=== PATIENT | male | born 1970 | race Caucasian/White ===

== ENCOUNTER 2020-05-28 07:13 | Outpatient (CLI) | payer OTHER, SELFPAY ==
--- NOTE | ~2020-05-28 | XR_ITS ---
EXAMINATION: XR shoulder LT min 2V DATE: 05/28/2020 08:12 INDICATION: Left shoulder pain. TECHNIQUE: 5 views of left shoulder were obtained. COMPARISON: Left shoulder radiographs 07/27/2017 FINDINGS: Bone alignment is normal. No fracture. Glenohumeral joint is normal. There is mild osteoart hritis of acromioclavicular joint. IMPRESSION: 1. Mild osteoarthritis of left acromioclavicular joint. Reviewed, dictated and finalized at location B.
--- NOTE | ~2020-05-28 | XR_ITS ---
EXAMINATION: XR cervical spine 4-5V EXAM DATE: 05/28/2020 08:09 INDICATION: Left shoulder pain, left arm tingling. Neck pain. TECHNIQUE: Cervical spine frontal, lateral, lateral swimmers, and open-mouth odontoid projections. There is no prior study for comparison. FINDINGS: There is no evidence of acute cervical fracture. The odontoid process is intact. Pre-dens space is normal. Prevertebral soft tissue is normal. There are no soft tissue abnormalities identi fied. There is 2 mm retrolisthesis C5 on 6 with mild to moderate disc disease at this level. The ve rtebral bodies are otherwise aligned. The vertebral body and disc heights are otherwise well maintain ed. Mild to moderate uncovertebral joint arthropathy at C5-6. Otherwise mild cervical arthropathy. Sm all amount of bilateral carotid bulb calcification. Lung apices unremarkable.. IMPRESSION: 1. Mild to moderate C5-6 spondylosis. 2. Mild bilateral carotid bulb arterial sclerosis. Reviewed, dictated and finalized at location A.
== END 2020-05-28 07:14 | disposition home or self-care (01) ==
DX: M79.645 Pain in left finger(s) (principal); M25.512 Pain in left shoulder; M54.2 Cervicalgia
CPT/HCPCS: 72050; 73030

== ENCOUNTER 2020-05-28 08:23 | Emergency (ER) | payer OTHER, SELFPAY ==
--- NOTE | ~2020-05-28 | CT_ITS ---
EXAMINATION: CT brain wo con EXAM DATE: 05/28/2020 09:24 INDICATION: Hypertension, headache and head pressure. TECHNIQUE: Spiral CT of the head was performed without contrast. Axial, coronal and sagittal images were reviewed. The dose-length product (DLP) for this examination was 605.33 mGy-cm. The exposure w as tailored according to patient size, and iterative reconstruction (ASIR) was used as additional dos e reduction technique. There is no prior study for comparison. FINDINGS: There is no acute intraparenchymal hemorrhage. No evidence of intraparenchymal brain mass lesion. No evidence of acute infarction. There is no mass effect or midline shift. The ventricles are normal in size. There are no extra-axial collections. There are no acute calvarial fractures. T he orbits are unremarkable. Soft tissue is unremarkable. The visualized sinuses and mastoid air lucian ls are well aerated. IMPRESSION: 1. No acute intracranial findings. Reviewed, dictated and finalized at location A.
--- NOTE | ~2020-05-28 | XR_ITS ---
EXAMINATION: XR chest 2V DATE: 05/28/2020 09:24 INDICATION: Hypertension. Chest pain. TECHNIQUE: PA and lateral views of the chest were obtained. COMPARISON: None FINDINGS: The lungs are clear with no focal airspace opacities, pulmonary edema, pleural effusion or pneumothor ax. The cardiomediastinal silhouette is normal. Mild to moderate thoracic spondylosis with minimal li [place]land physiologic anterior wedging at T11 and T12. IMPRESSION: 1. No acute cardiopulmonary disease. Reviewed, dictated and finalized at location A.
[2020-05-28 08:35] VITALS: BP 177/110; PULSE 48; RESP 18; TEMP 36.8; O2SAT 98
--- NOTE | 2020-05-28 08:44 | ECG_ITS ---
Measurements Intervals [place] Rate: 56 P: 51 [place]: 169 QRS: -11 QRSD: 112 T: 36 QT: 399 QTc: 385 Interpretive Statements SINUS BRADYCARDIA INTRAVENTRICULAR CONDUCTION DELAY VOLTAGE CRITERIA FOR LVH BORDERLINE ECG Electronically Signed On 05-28-2020 10:32:03 CDT by Jun Cartagena D.O.
[2020-05-28 08:48] VITALS: PULSE 48
--- NOTE | 2020-05-28 08:56 | ED.ARRPALP ---
HPI - Arrhythmia/Palpitations General Chief Complaint: Arrhythmia/Palpitations Stated Complaint: BLOOD PRESSURE HIGH Time Seen by Provider: 05/28/20 08:23 Source: patient Mode of arrival: ambulatory Limitations: no limitations History of Present Illness HPI narrative: 49-year-old man with a history of hypertension came to the hospital for outpatient x-rays today and was complaining of a headache so his primary care doctor asked staff to do in blood pressure. 185/120 and the x-ray department. He has been having dull head pressure for a month or 2 as well as intermittent sharp chest pain and palpitations more recently. He denies shortness of breath, cough, cold symptoms, sore throat, fever, sweats, syncope, nausea, vomiting or diarrhea, and limb swelling. He has had a catheterization in the past and has an extensive family history of coronary artery disease. He has no history of diabetes. MD complaint: palpitations Onset (ago): week(s) Duration: intermittent Severity: moderate Context: occurred during rest Associated symptoms: chest pain Treatments prior to arrival: beta-veronica Related Data Home Medications Medication Instructions Recorded Confirmed albuterol sulfate 1 puff INHALATION PRN PRN 05/28/20 05/28/20 amlodipine 10 mg PO DAILY 05/28/20 05/28/20 clonazepam 1 mg PO PRN PRN 05/28/20 05/28/20 ibuprofen 800 mg PO DAILY 05/28/20 05/28/20 metoprolol succinate 25 mg PO DAILY 05/28/20 05/28/20 Allergies Allergy/AdvReac Type Severity Reaction Status Date / Time calamine Allergy Unknown Verified 05/28/20 08:57 [From Calamine Plus (pramox-calamin)] Iodine and Iodide Containing Allergy Unknown Verified 05/28/20 08:56 Produc pramoxine Allergy Unknown Verified 05/28/20 08:57 [From Calamine Plus (pramox-calamin)] Review of Systems Constitutional: Constitutional: Denies chills and Denies fever(s) Eyes: Eyes: Denies change in vision and Denies photophobia ENT: Denies dysphagia, Reports nasal congestion ( seasonal allergies) and Denies sore throat Cardiovascular: Cardiovascular: Reports as per HPI, Reports chest pain and Denies radiating jaw, neck or arm pain Respiratory: Respiratory: Reports cough ( chronic as he is a smoker), Denies dyspnea and Denies wheezing Gastrointestinal: Gastrointestinal: Denies abdominal pain, Denies nausea and Denies vomiting Neurologic: Denies vertigo, Denies syncope, Reports headache(s), Denies focal weakness, Denies numbness and Denies weakness Endocrine: Endocrine: Denies excessive sweating Hematologic/Lymphatic: Hematologic/Lymphatic: Denies easy bleeding and Denies easy bruising Allergic/Immunologic: Allergic/Immunologic: Denies lip swelling and Denies throat swelling [facility] Surgical History Surgical History (Updated 05/28/20 @ 09:33 by Anibal Radford MD) H/O hernia repair Social History Social History (Updated 05/28/20 @ 09:33 by Anibal Radford MD) Smoking status: Current every day smoker Substance use type: does not use Living arrangements: with family Exam Const: General: healthy appearing, no acute distress and alert Orientation/consciousness: patient oriented x3 Limitations: no limitations Eyes: Conjunctivae: conjunctivae normal Pupils: Equal, round and reactive pupils present EOM: EOMs intact bilaterally Resp: Effort & Inspection: normal respiratory effort and not labored Auscultation: clear to auscultation bilaterally, no rales, no rhonchi and no wheezes Cardio: Rate: bradycardic Rhythm: regular rhythm Heart sounds: no murmurs GI: Auscultation: normal bowel sounds Other: Skin: General skin exam: normal color, no jaundice and no pallor Rashes: no rashes Neuro: General: patient oriented x3, moves all extremities, no focal motor deficits and CN's II-XI intact bilaterally Speech: normal speech Gait exam (Neuro): Normal gait present Extrem: General: normal to inspection and no clubbing, cyanosis or edema Psy
[2020-05-28 09:06] LABS: Basophils Absolute Auto 0.04 K/mm3 (0.00-0.10); Basophils Percent Auto 0.4 % (0.0-1.0); Eosinophils Absolute Auto 0.36 K/mm3 (0.02-0.50); Eosinophils Percent Auto 3.6 % (1.0-6.0); Hematocrit 47.5 % (40.0-54.0); Hemoglobin 15.9 g/dL (14.0-18.0); Immature Granulocyte Absolute 0.02 K/mm3 (0.00-0.00); Immature Granulocyte Percent A 0.2 % (0.0-0.0); Lymphocytes Percent Auto 24.7 % (18.0-42.0); Mean Corpuscular HGB Conc 33.5 g/dL (32.0-36.0); Mean Corpuscular Hemoglobin 31.5 pg (27.0-31.0); Mean Corpuscular Volume 94.1 fL (78.0-102.0); Mean Platelet Volume 9.9 fl (8.7-11.0); Monocytes Absolute Auto 0.65 K/mm3 (0.10-0.90); Monocytes Percent Auto 6.4 % (2.0-11.0); Neutrophils Absolute Auto 6.6 K/mm3 (1.7-7.2); Neutrophils Percent Auto 64.7 % (50.0-70.0); Platelet Count Result 243 K/mm3 (150-420); Red Blood Count 5.05 M/mm3 (4.70-6.10); Red Cell Distribution Width 12.8 % (11.6-14.4); White Blood Count 10.1 K/mm3 (4.8-10.8)
[2020-05-28 09:21] LABS: BNP 15.2 pg/mL (0-100)
[2020-05-28 09:23] LABS: Alanine Aminotransferase 28 U/L (16-63); Albumin Level 3.6 g/dL (3.4-5.0); Alkaline Phosphatase 60 U/L (46-116); Anion Gap 10 mmol/L (8-16); Aspartate Amino Transferase 15 U/L (15-37); Bilirubin,Total 0.7 mg/dL (0.00-1.00); Blood Urea Nitrogen 10 mg/dL (7-18); Calcium 8.5 mg/dL (8.5-10.1); Carbon Dioxide 26 mmol/L (21-32); Chloride 105 mmol/L (98-108); Estimated CRCL calculation 82 ml/min; Estimated Glomerular Filt Rate > 60; Glucose 91 mg/dL (70-99); Osmolality Calculated 291 mOsm/kg (285-295); Sodium 141 mmol/L (136-145); Total Protein 7.1 g/dL (6.4-8.2)
[2020-05-28 09:24] VITALS: BP 150/88; PULSE 47; RESP 18; O2SAT 97
[2020-05-28 09:24] LABS: Partial Thromboplastin Time 28.5 SEC (22.3-31.6); Prothrombin Time 10.8 Seconds (9.64-11.0)
[2020-05-28 09:25] LABS: D Dimer 0.56 mg/L (0.19-0.50); Digoxin < 0.2 ng/mL (0.9-2.0); Troponin I < 0.02 ng/mL (0.00-0.056)
[2020-05-28 09:33] VITALS: BP 140/74; PULSE 47; RESP 20; O2SAT 98
[2020-05-28 09:38] VITALS: BP 139/82; PULSE 48; RESP 18; TEMP 36.6; O2SAT 98
== END 2020-05-28 09:45 | disposition home or self-care (01) ==
PROVIDERS: Emergency Provider Emergency Medicine; PCP Family Medicine
DX: I16.0 Hypertensive urgency (principal)
CPT/HCPCS: 36415; 70450; 71046; 80053; 80162; 83880; 84484; 85025; 85380; 85610; 85730; 93005; 99284

== ENCOUNTER 2020-06-24 07:57 | Outpatient (RCR) | payer OTHER, SELFPAY ==
--- NOTE | 2020-06-24 09:12 | PTOPEVAL ---
Thank you for referring Fco Rosenberg to [facility].? The patient is scheduled to be seen for therapy? __3__x/week for 12 visits. Please review, sign, date and return this plan of care BENJAMIN. I agree with and certify that the following plan of care is medically necessary. Referring Physician Date Admitting Provider: Attending Provider: John Paul Pretty, Referring Provider: *PT Outpatient Evaluation Start: 06/24/20 08:00 Freq: Status: Active Protocol: Document 06/24/20 08:00 JUAN PABLO (Rec: 06/24/20 09:11 JUAN PABLO [id number]) Therapy Assessment Status Assessment Status Assessment Status Evaluation Outpatient Past Medical History Cardiovascular History Hx Cardiac Catheterization Yes Hx Hypercholesterolemia Yes Hx Hypertension Yes Hx Palpitations Yes Respiratory History Hx Asthma Yes Gastrointestinal History Hx Hernia Yes Other History Hx Other Surgeries Yes: carpal tunnel Evaluation Information Problem Diagnosis neck pain Onset 10/01/19 Subjective Information Pt. reports that he has had Query Text:As Reported By Patient/ neck pain since the beginning Family of the year. He reports that pain is located down the neck and numbness that radiates into the right arm. Pt. reports that he does not have constant numbness. He reports that he does have some stiffness in the neck, but very little pain currently. 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 He reports pain is present with laying in bed or playing on the phone. He states that pain will wake him at night. He reports that his goal is to decrease his neck and arm pain. Diagnostic Tests X-Rays For This Problem Yes Prior Level of Function Activity Level (Last 3 Months) Occupation principal mechanical engineer Hand Dominance Right Activity of Daily Living Ability Independent Indoor/Home Mobility Independent Community Mobility Independent Stairs Ability Independent Functional Cognition (Planning, Shopping Independent , Taking Medications) Cooking Yes Clean
--- NOTE | 2020-07-09 10:23 | PCPTNOTE ---
07/09/20-pt did not show for appointment today.-
--- NOTE | 2020-09-10 11:29 | PCPTNOTE ---
Mr. Rosenberg attended a total of 4 treatment sessions with his last being on 07/02/20. He has failed to return to the clinic or contact the clinic and will be discharged from our care at this time. Thank you for the referral of this patient. Walter Brantley, MPT
== END 2020-07-02 14:49 | disposition home or self-care (01) ==
LOC: CHSPT 07:57
PROVIDERS: Visit Provider Family Medicine
DX: M54.2 Cervicalgia (principal)
CPT/HCPCS: 97012; 97014; 97110; 97161; G0283

== ENCOUNTER 2021-01-07 07:27 | Outpatient (CLI) | payer OTHER, SELFPAY ==
[2021-01-07 07:37] LABS: Basophils Absolute Auto 0.05 K/mm3 (0.00-0.10); Basophils Percent Auto 0.7 % (0.0-1.0); Eosinophils Absolute Auto 0.61 K/mm3 (0.02-0.50); Eosinophils Percent Auto 8.2 % (1.0-6.0); Hematocrit 45.7 % (40.0-54.0); Hemoglobin 15.3 g/dL (14.0-18.0); Immature Granulocyte Absolute 0.02 K/mm3 (0.00-0.00); Immature Granulocyte Percent A 0.3 % (0.0-0.0); Lymphocytes Absolute Auto 2.14 K/mm3 (1.10-4.50); Lymphocytes Percent Auto 28.9 % (18.0-42.0); Mean Corpuscular HGB Conc 33.5 g/dL (32.0-36.0); Mean Corpuscular Hemoglobin 31.2 pg (27.0-31.0); Mean Corpuscular Volume 93.1 fL (78.0-102.0); Mean Platelet Volume 10.1 fl (8.7-11.0); Monocytes Absolute Auto 0.57 K/mm3 (0.10-0.90); Monocytes Percent Auto 7.7 % (2.0-11.0); Neutrophils Percent Auto 54.2 % (50.0-70.0); Platelet Count Result 222 K/mm3 (150-420); Red Blood Count 4.91 M/mm3 (4.70-6.10); Red Cell Distribution Width 12.1 % (11.6-14.4); White Blood Count 7.4 K/mm3 (4.8-10.8)
[2021-01-07 09:00] LABS: Alanine Aminotransferase 24 U/L (16-63); Albumin Level 3.6 g/dL (3.4-5.0); Alkaline Phosphatase 84 U/L (46-116); Anion Gap 8 mmol/L (8-16); Aspartate Amino Transferase 10 U/L (15-37); Bilirubin,Total 0.6 mg/dL (0.00-1.00); Blood Urea Nitrogen 9 mg/dL (7-18); Calcium 9.1 mg/dL (8.5-10.1); Carbon Dioxide 28 mmol/L (21-32); Chloride 103 mmol/L (98-108); Cholesterol 245 mg/dL (0-200); Estimated Glomerular Filt Rate > 60; Glucose 98 mg/dL (70-99); HDL Direct 29 mg/dL (40-60); LDL Cholesterol Calculated 167 mg/dL (<130); Osmolality Calculated 286 mOsm/kg (285-295); Potassium 4.1 mmol/L (3.5-5.1); Prostate Specific Antigen 0.6 ng/mL (< OR = 4.0); Sodium 139 mmol/L (136-145); Total Protein 6.9 g/dL (6.4-8.2); Triglycerides 244 mg/dL (0-150)
[2021-01-11 14:13] LABS: Testosterone Free 103.7 pg/mL (35.0-155.0); Testosterone Total 644 ng/dL (250-1100)
== END 2021-01-07 07:28 | disposition home or self-care (01) ==
LOC: CHSLAB 07:29
PROVIDERS: PCP Physician Assistant Medical; Visit Provider Physician Assistant Medical
DX: R53.83 Other fatigue (principal); F31.9 Bipolar disorder, unspecified; Z12.5 Encounter for screening for malignant neoplasm of prostate; E78.2 Mixed hyperlipidemia; I10 Essential (primary) hypertension
CPT/HCPCS: 36415; 80053; 80061; 84153; 84402; 84403; 85025; G0103

== ENCOUNTER 2022-12-29 20:55 | Emergency (ER) | payer OTHER, SELFPAY ==
[2022-12-29] VITALS (10 sets, daily range): BP systolic 123–188; BP diastolic 85–109; PULSE 55–88; RESP 12–23; TEMP 36.6; O2SAT 95–97
--- NOTE | ~2022-12-29 | XR_ITS ---
EXAMINATION: XR chest 1V portable INDICATION: Chest pain TECHNIQUE: Portable AP chest at 2149 hours COMPARISON: 05/28/2020 FINDINGS: There are mild patchy opacities throughout all lung zones. No pleural effusion or pneumotho rax. The cardiomediastinal silhouette is normal. IMPRESSION: 1. Diffuse lung disease, consistent with atelectasis versus pneumonia versus pulmonary edema. Reviewed, dictated and finalized at location F. IMPRESSION: 1. Diffuse lung disease, consistent with atelectasis versus pneumonia versus pu lmonary edema.
--- NOTE | 2022-12-29 21:09 | ECG_ITS ---
Measurements Intervals [place] Rate: 85 P: 23 [place]: 157 QRS: -14 QRSD: 117 T: 15 QT: 370 QTc: 441 Interpretive Statements SINUS RHYTHM VENTRICULAR PREMATURE COMPLEXES INTRAVENTRICULAR CONDUCTION DELAY VOLTAGE CRITERIA FOR LVH BORDERLINE T WAVE ABNORMALITY- INFERIOR LEADS BASELINE ARTIFACT- I, II, III, AVR, AVL, V1, V5-V6 BORDERLINE ECG COMPARED TO ECG 05/28/2020 08:55:41 SINUS RHYTHM NOW PRESENT Electronically Signed On 12-29-2022 22:05:52 CDT by Jun Cartagena D.O.
[2022-12-29] MEDS: ASPIRIN 81 MG CHEWABLE TABLET 324 MG PO (21:42)
[2022-12-29] MEDS: METOPROLOL TARTRATE INJ 5 MG/5 ML VIAL IV PUSH (21:43)
[2022-12-29] MEDS: NITROGLYCERIN SL 0.4 MG TABLET SUBLINGUAL ×2 (21:43→21:59)
[2022-12-29 21:55] LABS: Basophils Absolute Auto 0.05 K/mm3 (0.00-0.10); Basophils Percent Auto 0.7 % (0.0-1.0); Eosinophils Absolute Auto 0.38 K/mm3 (0.02-0.50); Eosinophils Percent Auto 5.2 % (1.0-6.0); Hemoglobin 14.2 g/dL (14.0-18.0); Immature Granulocyte Absolute 0.01 K/mm3 (0.00-0.00); Immature Granulocyte Percent A 0.1 % (0.0-0.0); Lymphocytes Absolute Auto 2.75 K/mm3 (1.10-4.50); Lymphocytes Percent Auto 37.8 % (18.0-42.0); Mean Corpuscular HGB Conc 34.6 g/dL (32.0-36.0); Mean Corpuscular Hemoglobin 32.6 pg (27.0-31.0); Mean Corpuscular Volume 94.3 fL (78.0-102.0); Mean Platelet Volume 9.4 fl (8.7-11.0); Monocytes Absolute Auto 0.47 K/mm3 (0.10-0.90); Monocytes Percent Auto 6.5 % (2.0-11.0); Neutrophils Absolute Auto 3.6 K/mm3 (1.7-7.2); Neutrophils Percent Auto 49.7 % (50.0-70.0); Platelet Count Result 225 K/mm3 (150-420); Red Blood Count 4.35 M/mm3 (4.70-6.10); Red Cell Distribution Width 12.7 % (11.6-14.4); White Blood Count 7.3 K/mm3 (4.8-10.8)
[2022-12-29 22:11] LABS: Alanine Aminotransferase 36 U/L (16-63); Albumin Level 3.7 g/dL (3.4-5.0); Alkaline Phosphatase 72 U/L (46-116); Anion Gap 11 mmol/L (8-16); Aspartate Amino Transferase 19 U/L (15-37); Bilirubin,Total 0.6 mg/dL (0.00-1.00); Blood Urea Nitrogen 13 mg/dL (7-18); Calcium 8.4 mg/dL (8.5-10.1); Carbon Dioxide 26 mmol/L (21-32); Chloride 101 mmol/L (98-108); D Dimer 0.24 mg/L (0.19-0.50); Estimated CRCL calculation 83 ml/min; Estimated Glomerular Filt Rate > 60; Glucose 97 mg/dL (70-99); Lipase 62 U/L (16-77); Osmolality Calculated 286 mOsm/kg (285-295); Potassium 3.3 mmol/L (3.5-5.1); Sodium 138 mmol/L (136-145); Troponin I 11.1 ng/L (0.00-60.4)
--- NOTE | 2022-12-30 07:34 | ED.CHESTPAIN ---
HPI - Chest Pain General Chief Complaint: Chest Pain Stated Complaint: high blood pressure Time Seen by Provider: 12/29/22 21:30 Source: patient Mode of arrival: ambulatory Limitations: no limitations History of Present Illness HPI narrative: patient has been having some chest discomfort since approximately 1:00 a.m. this afternoon accompanied by some mild shortness of breath. Denies any diaphoresis. The location of the pain it is central chest. No ankle swelling. No prior history of heart disease. Risk factors as noted Pain radiation: none Associated symptoms: nausea Risk Factors Coronary artery disease risk factors: smoking history and hypertension Related Data Home Medications Medication Instructions Recorded Confirmed albuterol sulfate 90 mcg/actuation 2 puff inhalation PRN PRN 05/28/20 05/28/20 aerosol inhaler Shortness Of Breath amlodipine 10 mg tablet 10 mg PO DAILY 05/28/20 05/28/20 clonazepam 1 mg tablet 1 mg PO PRN PRN Anxiety 05/28/20 05/28/20 ibuprofen 800 mg tablet 800 mg PO DAILY 05/28/20 05/28/20 metoprolol succinate 25 mg 25 mg PO DAILY 05/28/20 05/28/20 tablet,extended release 24 hr Allergies Allergy/AdvReac Type Severity Reaction Status Date / Time calamine Allergy Unknown Verified 12/29/22 22:06 [From Calamine Plus (pramox-calamin)] Iodine and Iodide Containing Allergy Unknown Verified 12/29/22 22:06 Produc pramoxine Allergy Unknown Verified 12/29/22 22:06 [From Calamine Plus (pramox-calamin)] Review of Systems Review of Systems: All systems reviewed & are unremarkable except as noted in HPI and below PMFSH Surgical History Surgical History H/O hernia repair Social History Social History (System 10/17/21 @ 10:00 by Choco Hendrix) Smoking status: Current every day smoker Substance use type: does not use Living arrangements: with family Exam Narrative: healthy-appearing 52-year-old male with normal heart lungs and abdominal exam. No lower extremity swelling. Skin is warm and dry Const: General: healthy appearing Nutritional Appearance: well nourished Limitations: no limitations HENMT: Head: normal to inspection Ears: external ears normal Eyes: Direct Ophthalmoscopy: no photophobia Resp: Effort & Inspection: normal respiratory effort GI: Inspection: non-distended Back/Spine/Pelvis: Back: no CVA tenderness Skin: General skin exam: normal color Neuro: General: patient oriented x3 Gait exam (Neuro): Normal gait present Course Vital Signs Vital signs: Vital Signs Temperature 36.6 C 12/29/22 21:10 Pulse Rate 88 12/29/22 21:10 Respiratory Rate 20 12/29/22 21:10 Blood Pressure 188/109 H 12/29/22 21:10 Pulse Oximetry 97 12/29/22 21:10 Oxygen Delivery Room Air 12/29/22 21:10 Temperature 36.6 C 12/29/22 21:10 Pulse Rate 59 L 12/29/22 22:56 Respiratory Rate 12 12/29/22 22:56 Blood Pressure 138/86 12/29/22 22:56 Pulse Oximetry 97 12/29/22 22:56 Oxygen Delivery Room Air 12/29/22 21:10 MDM - Chest Pain Lab Data 12/29/22 21:52 12/29/22 21:52 Labs: Lab Results 12/29/22 12/29/22 12/29/22 Range/Units 21:52 21:52 21:52 WBC 7.3 (4.8-10.8) K/mm3 RBC 4.35 L (4.70-6.10) M/mm3 Hgb 14.2 (14.0-18.0) g/dL Hct 41.0 (40.0-54.0) % MCV 94.3 (78.0-102.0) fL MCH 32.6 H (27.0-31.0) pg MCHC 34.6 (32.0-36.0) g/dL RDW 12.7 (11.6-14.4) % Plt Count 225 (150-420) K/mm3 MPV 9.4 (8.7-11.0) fl Immature Gran % (Auto) 0.1 H (0.0-0.0) % Neut % (Auto) 49.7 L (50.0-70.0) % Lymph % (Auto) 37.8 (18.0-42.0) % [facility] % (Auto) 6.5 (2.0-11.0) % Eos % (Auto) 5.2 (1.0-6.0) % Baso % (Auto) 0.7 (0.0-1.0) % Lymph # (Auto) 2.75 (1.10-4.50) K/mm3 [facility] # (Auto) 0.47 (0.10-0.90) K/mm3 Eos # (Auto) 0.38 (0.02-0.50) K/mm3 Baso # (Auto) 0.05 (0.
== END 2022-12-29 23:02 | disposition home or self-care (01) ==
PROVIDERS: Emergency Provider Family Medicine; PCP Physician Assistant Medical
DX: I11.9 Hypertensive heart disease without heart failure (principal); I43 Cardiomyopathy in diseases classified elsewhere; F17.210 Nicotine dependence, cigarettes, uncomplicated
CPT/HCPCS: 36415; 71045; 80053; 83690; 84484; 85025; 85380; 93005; 96374; 99284; A9270

== ENCOUNTER 2023-01-05 13:12 | Outpatient (CLI) | payer OTHER, SELFPAY ==
--- NOTE | ~2023-01-05 | XR_ITS ---
XR chest 2V DATE: 01/05/2023 13:33 INDICATION: Chest heaviness, bilateral chest pressure, hypertension TECHNIQUE: PA and lateral view COMPARISON: 12/29/2022 portable AP chest FINDINGS: Normal heart size. No hilar or mediastinal enlargement. No pulmonary infiltrate or consolid ation, pleural effusion or pulmonary vascular congestion or pneumothorax. Mild degenerative spurring of the thoracic spine. IMPRESSION: No active cardiopulmonary disease Reviewed, dictated and finalized at location A.
== END 2023-01-05 13:13 | disposition home or self-care (01) ==
LOC: CHSIMG 13:14
PROVIDERS: PCP Surgery; Visit Provider Family Medicine
DX: R93.89 Abnormal findings on diagnostic imaging of other specified body structures (principal)
CPT/HCPCS: 71046

== ENCOUNTER 2023-02-08 11:55 | Outpatient (CLI) | payer OTHER, SELFPAY | END 2023-02-08 11:56 | disposition home or self-care (01) | LOC: CHSCARD 11:56 | PROVIDERS: PCP Physician Assistant Medical; Visit Provider Physician Assistant Medical | DX: R00.2 Palpitations (principal) | CPT/HCPCS: 99199; 93225; 93226 ==

== ENCOUNTER 2023-02-15 10:17 | Outpatient (CLI) | payer OTHER, SELFPAY ==
--- NOTE | ~2023-02-15 | MR_ITS ---
MRI of the brain Clinical History: Headache Technique: Axial and sagittal T1-weighted images were acquired. These were followed by axial T2-weigh carmella, diffusion weighted, gradient, and FLAIR images. Findings: No abnormal signal seen in the brain parenchyma. No acute infarct, intracranial hemorrhage, or mass lesion. Ventricles and subarachnoid spaces are unremarkable. Orbits are unremarkable. Paranasal sinuses and m astoid air cells are clear. Major intracranial flow voids are intact. Sagittal midline structures are intact. IMPRESSION: Unremarkable exam. Reviewed, dictated and finalized at location M. IMPRESSION: Unremarkable exam.
== END 2023-02-15 10:18 | disposition home or self-care (01) ==
LOC: CHSIMG 10:19
PROVIDERS: PCP Physician Assistant Medical; Visit Provider Physician Assistant Medical
DX: G44.52 New daily persistent headache (NDPH) (principal)
CPT/HCPCS: 70551

== ENCOUNTER 2023-06-04 16:43 | Emergency (ER) | payer OTHER, SELFPAY ==
[2023-06-04] VITALS (21 sets, daily range): BP systolic 105–152; BP diastolic 66–94; PULSE 57–105; RESP 12–21; TEMP 36.6–36.9; O2SAT 96–100
--- NOTE | ~2023-06-04 | XR_ITS ---
Portable chest x-ray Comparison: 01/05/2023 Clinical History: Chest pain Findings: Lungs are clear, without focal consolidation or pleural effusion. Cardiomediastinal silho uette is stable. Bones and soft tissues are unremarkable. Impression: Normal chest. Reviewed, dictated and finalized at [facility]. Impression: Normal chest.
--- NOTE | 2023-06-04 16:45 | ECG_ITS ---
Measurements Intervals [place] Rate: 63 P: 40 [place]: 174 QRS: -3 QRSD: 112 T: 30 QT: 402 QTc: 413 Interpretive Statements SINUS RHYTHM INTRAVENTRICULAR CONDUCTION DELAY BORDERLINE ECG COMPARED TO ECG 12/29/2022 21:18:14 NO SIGNIFICANT CHANGES Electronically Signed On 06-05-2023 7:07:59 CDT by Jnu Cartagena D.O.
--- NOTE | 2023-06-04 16:57 | ED.GENADULT ---
HPI - General Adult General Chief complaint: Chest Pain Stated complaint: SOB Time Seen by Provider: 06/04/23 16:49 History of Present Illness HPI narrative: Fco is a 52M with a PMH of HTN, tobacco abuse, asthma and a strong family history of cardiac disease that presented to the ED with 2 days of chest pain/pressure, dyspnea, and palpitations. He has been short of breath and he has been using his albuterol a lot but still feels that he has dyspnea, palpitations and pain. It does not radiate and is not related with activity. Related Data Home Medications Medication Instructions Recorded Confirmed albuterol sulfate 90 mcg/actuation 2 puff inhalation PRN PRN 05/28/20 06/04/23 aerosol inhaler Shortness Of Breath clonazepam 1 mg tablet 1 mg PO PRN PRN Anxiety 05/28/20 06/04/23 ibuprofen 800 mg tablet 800 mg PO DAILY 05/28/20 06/04/23 amlodipine 5 mg tablet 5 mg PO DAILY 06/04/23 06/04/23 lisinopril 20 1 tablet PO DAILY 06/04/23 06/04/23 mg-hydrochlorothiazide 12.5 mg tablet sildenafil 100 mg tablet 100 mg PO DAILY PRN Erectile 06/04/23 06/04/23 Dysfunction Allergies Allergy/AdvReac Type Severity Reaction Status Date / Time calamine Allergy Unknown Verified 06/04/23 16:46 [From Calamine Plus (pramox-calamin)] Iodine and Iodide Containing Allergy Unknown Verified 06/04/23 16:46 Produc pramoxine Allergy Unknown Verified 06/04/23 16:46 [From Calamine Plus (pramox-calamin)] Review of Systems Review of Systems: All systems reviewed & are unremarkable except as noted in HPI and below PMFSH Surgical History Surgical History H/O hernia repair Social History Social History Smoking status: Current every day smoker Substance use type: does not use Living arrangements: with family Exam Const: General: healthy appearing and no acute distress Nutritional Appearance: well nourished Orientation/consciousness: patient oriented x3 HENMT: Head: normal to inspection Ears: external ears normal Eyes: Conjunctivae: conjunctivae normal Pupils: Equal, round and reactive pupils present Neck: Neck: normal visual inspection Chest: Chest palpation & inspection: normal inspection of the chest Resp: Effort & Inspection: normal respiratory effort Auscultation: clear to auscultation bilaterally Cardio: Rate: regular rate Rhythm: regular rhythm GI: Inspection: non-distended Back/Spine/Pelvis: Back: no CVA tenderness Skin: General skin exam: normal color Rashes: no rashes Neuro: General: patient oriented x3 and moves all extremities Speech: normal speech Extrem: Other: nor deformities Psych: Mental Status: mental status grossly normal Course Course Emergency Course: Ordered labs, CXR and EKG EKG showed NSR with a rate of 63,normal axis, No ST elevation or depression. Rhythm strip did show some PVCs. Portable chest x-ray Comparison: 01/05/2023 Clinical History: Chest pain Findings:? Lungs are clear, without focal consolidation or pleural effusion.? Cardiomediastinal silhouette is stable. Bones and soft tissues are unremarkable. Impression: Normal chest. At approximately 1720 he started to grab his chest sit up and started gasping for air at which time a rapid was called. Chest pads were placed. His monitor showed a prolonged run of V-tach preceded by frequent PVCs. This self resolved. His labs showed mildly low sodium and potassium. He was started on potassium and magnesium. Portable chest x-ray Comparison: 01/05/2023 Clinical History: Chest pain Findings:? Lungs are clear, without focal consolidation or pleural effusion.? Cardiomediastinal silhouette is stable. Bones and soft tissues are unremarkable. Impression: Normal chest. Contacted [facility] for transfer to a higher level of care. I spoke with Dr. Gaines of cardiology at approximately 1615 who r
[2023-06-04] MEDS: ASPIRIN 81 MG CHEWABLE TABLET 324 MG PO (17:06)
[2023-06-04] MEDS: NITROGLYCERIN SL 0.4 MG TABLET SUBLINGUAL (17:07)
[2023-06-04 17:08] LABS: Basophils Absolute Auto 0.02 K/mm3 (0.00-0.10); Basophils Percent Auto 0.3 % (0.0-1.0); Eosinophils Absolute Auto 0.17 K/mm3 (0.02-0.50); Eosinophils Percent Auto 2.1 % (1.0-6.0); Hemoglobin 14.7 g/dL (14.0-18.0); Immature Granulocyte Absolute 0.02 K/mm3 (0.00-0.00); Immature Granulocyte Percent A 0.3 % (0.0-0.0); Lymphocytes Absolute Auto 2.44 K/mm3 (1.10-4.50); Lymphocytes Percent Auto 30.8 % (18.0-42.0); Mean Corpuscular Volume 94.2 fL (78.0-102.0); Mean Platelet Volume 9.6 fl (8.7-11.0); Monocytes Absolute Auto 0.45 K/mm3 (0.10-0.90); Monocytes Percent Auto 5.7 % (2.0-11.0); Neutrophils Absolute Auto 4.8 K/mm3 (1.7-7.2); Neutrophils Percent Auto 60.8 % (50.0-70.0); Platelet Count Result 241 K/mm3 (150-420); Red Blood Count 4.46 M/mm3 (4.70-6.10); Red Cell Distribution Width 13.1 % (11.6-14.4); White Blood Count 7.9 K/mm3 (4.8-10.8)
[2023-06-04 17:23] LABS: Prothrombin Time 10.9 Seconds (9.50-12.10)
[2023-06-04] MEDS: LORazepam INJ (*CRX) 2 MG/ML VIAL 0.5 MG IV PUSH (17:23)
--- NOTE | 2023-06-04 17:24 | PC.NURSE ---
RN was walking out of room after giving ativan, patient sat right up and started gasping for air and holding his chest. ERP rushed to beside, crash cart pulled to room, pads placed on patient. cardiopulmonary to do EKG. Patient placed on o2 and breathing coaxed. 2nd IV established in his right AC.
--- NOTE | 2023-06-04 17:29 | ECG_ITS ---
Measurements Intervals [place] Rate: 75 P: 37 CT: 153 QRS: -11 QRSD: 109 T: 33 QT: 371 QTc: 417 Interpretive Statements SINUS RHYTHM POSSIBLE LEFT ATRIAL ENLARGEMENT BASELINE ARTIFACT- I, II, III, AVR, AVL, AVF, V1-V2 BORDERLINE ECG COMPARED TO ECG 06/04/2023 16:49:00 NO SIGNIFICANT CHANGES Electronically Signed On 06-05-2023 7:08:33 CDT by Jun Cartagena D.O.
[2023-06-04 17:30] LABS: Alanine Aminotransferase 29 U/L (16-63); Albumin Level 3.3 g/dL (3.4-5.0); Alkaline Phosphatase 68 U/L (46-116); Anion Gap 11 mmol/L (8-16); Aspartate Amino Transferase 17 U/L (15-37); Bilirubin,Total 0.6 mg/dL (0.00-1.00); Blood Urea Nitrogen 5 mg/dL (7-18); Calcium 8.4 mg/dL (8.5-10.1); Carbon Dioxide 25 mmol/L (21-32); Chloride 95 mmol/L (98-108); Estimated Glomerular Filt Rate > 60; Glucose 118 mg/dL (70-99); Lipase 140 U/L (16-77); NT Pro B Type Natriuretic Pept 69 pg/mL (0-125); Osmolality Calculated 270 mOsm/kg (285-295); Potassium 3.1 mmol/L (3.5-5.1); Sodium 131 mmol/L (136-145); Total Protein 6.6 g/dL (6.4-8.2); Troponin I 5.7 ng/L (0.00-60.4)
--- NOTE | 2023-06-04 17:39 | ECG_ITS ---
Measurements Intervals [place] Rate: 80 P: 33 [place]: 154 QRS: -8 QRSD: 104 T: 32 QT: 381 QTc: 440 Interpretive Statements SINUS RHYTHM VENTRICULAR TRIGEMINY BASELINE ARTIFACT- I, III, AVR, AVL, AVF, V1-V3 ABNORMAL ECG COMPARED TO ECG 06/04/2023 17:33:28 VENTRICULAR TRIGEMINY NOW PRESENT Electronically Signed On 06-05-2023 7:09:14 CDT by Jun Cartagena D.O.
[2023-06-04] MEDS: KCL 20 MEQ/SW 100 ML 100 ML 50 MEQ (17:46)
[2023-06-04 17:50] LABS: Magnesium 1.8 mg/dL (1.8-2.4)
[2023-06-04] MEDS: MAGNESIUM SULF 2 GM/WATER 50ML 2 GM/50 ML BAG IVPB (17:51)
[2023-06-04] MEDS: SODIUM CHLORIDE 0.9% IV 500 ML 100 ML (17:55)
--- NOTE | 2023-06-04 18:00 | PC.NURSE ---
patient is resting on stretcher, at beside helping him use urinal at this time.
--- NOTE | 2023-06-04 19:00 | PC.NURSE ---
Report received, pt resting comfortably, awaiting transfer to [facility] and bed assignment. VSS, heart monitor showing SR at this time. KCL infusing per order.
--- NOTE | 2023-06-04 20:14 | PC.NURSE ---
Pt report given to [facility] for transfer. Pt stamason, VSS, monitor shows NSR. Pt moved to cot s difficulty.
== END 2023-06-04 20:16 | disposition short-term general hospital (02) ==
PROVIDERS: Emergency Provider Family Medicine
DX: I49.9 Cardiac arrhythmia, unspecified (principal); I10 Essential (primary) hypertension; F17.200 Nicotine dependence, unspecified, uncomplicated; Z79.899 Other long term (current) drug therapy
CPT/HCPCS: 36415; 71045; 80053; 83690; 83735; 83880; 84484; 85025; 85380; 85610; 93005; 96361; 96365; 96366; 96368; 96375; 99285; A9270; J2060; J3475; J3480; J7040

== ENCOUNTER 2023-10-08 15:20 | Emergency (ER) | payer OTHER, SELFPAY ==
[2023-10-08] VITALS (32 sets, daily range): BP systolic 156–181; BP diastolic 83–100; PULSE 43–61; RESP 11–23; TEMP 36.2–36.6; O2SAT 97–100
--- NOTE | ~2023-10-08 | XR_ITS ---
EXAMINATION: XR chest 2V DATE: 10/08/2023 15:38 INDICATION: Left chest pain radiating to the arm. TECHNIQUE: Frontal and lateral views of the chest were obtained. COMPARISON: Chest 2 view 06/04/2023 FINDINGS: There is no pneumonia, pleural effusion, or pneumothorax. The heart size is normal. IMPRESSION: 1. No acute cardiopulmonary disease. Reviewed, dictated and finalized at location A. IT SUPPORT COUNSELOR
--- NOTE | 2023-10-08 15:26 | ECG_ITS ---
Measurements Intervals [place] Rate: 54 P: 63 [place]: 178 QRS: -1 QRSD: 111 T: 33 QT: 435 QTc: 413 Interpretive Statements SINUS BRADYCARDIA INTRAVENTRICULAR CONDUCTION DELAY VOLTAGE CRITERIA FOR LVH BORDERLINE ECG COMPARED TO ECG 06/04/2023 17:41:50 SINUS BRADYCARDIA NOW PRESENT INTRAVENTRICULAR CONDUCTION DELAY NOW PRESENT Electronically Signed On 10-08-2023 16:50:09 METER TESTER by Jun Cartagena D.O.
[2023-10-08 15:52] LABS: Basophils Absolute Auto 0.05 K/mm3 (0.00-0.10); Basophils Percent Auto 0.6 % (0.0-1.0); Eosinophils Absolute Auto 0.58 K/mm3 (0.02-0.50); Eosinophils Percent Auto 6.5 % (1.0-6.0); Hematocrit 43.9 % (40.0-54.0); Hemoglobin 15.4 g/dL (14.0-18.0); Immature Granulocyte Absolute 0.01 K/mm3 (0.00-0.00); Immature Granulocyte Percent A 0.1 % (0.0-0.0); Lymphocytes Absolute Auto 2.88 K/mm3 (1.10-4.50); Lymphocytes Percent Auto 32.5 % (18.0-42.0); Mean Corpuscular HGB Conc 35.1 g/dL (32.0-36.0); Mean Corpuscular Hemoglobin 32.8 pg (27.0-31.0); Mean Corpuscular Volume 93.4 fL (78.0-102.0); Mean Platelet Volume 9.8 fl (8.7-11.0); Monocytes Absolute Auto 0.58 K/mm3 (0.10-0.90); Monocytes Percent Auto 6.5 % (2.0-11.0); Neutrophils Absolute Auto 4.8 K/mm3 (1.7-7.2); Neutrophils Percent Auto 53.8 % (50.0-70.0); Platelet Count Result 259 K/mm3 (150-420); Red Cell Distribution Width 13.6 % (11.6-14.4); White Blood Count 8.9 K/mm3 (4.8-10.8)
--- NOTE | 2023-10-08 15:55 | ED.CHESTPAIN ---
HPI - Chest Pain General Chief Complaint: Chest Pain Stated Complaint: chest pain Time Seen by Provider: 10/08/23 15:26 History of Present Illness HPI narrative: Patient is a 53 year old male with history of HTN, v.tach, s/p ablation in [place] in June 2023 here with chest pain. He notes that the chest pain began around 8:30 AM, located on the left side and is usually only present for a few seconds at a time. It seems to be worse when he gets up and moves around, improves at rest, not currently present. He denies associated diaphoresis, nausea, shortness of breath. He is established with a allied health professional in [place] after his ablation. Notes chronic cough from smoking, has not recently worsened. He denies any recent long travel, no history of PE or DVT. Takes baby ASA only, no blood thinners. No known sick contacts. No recent change in physical activity. Related Data Home Medications Medication Instructions Recorded Confirmed albuterol sulfate 90 mcg/actuation 2 puff inhalation PRN PRN 05/28/20 10/08/23 aerosol inhaler Shortness Of Breath amlodipine 5 mg tablet 5 mg PO DAILY 06/04/23 10/08/23 aspirin 81 mg tablet 81 mg PO DAILY 10/08/23 10/08/23 atorvastatin 40 mg tablet 40 mg PO DAILY 10/08/23 10/08/23 Allergies Allergy/AdvReac Type Severity Reaction Status Date / Time calamine Allergy Unknown Verified 10/08/23 15:34 [From Calamine Plus (pramox-calamin)] Iodine and Iodide Containing Allergy Unknown Verified 10/08/23 15:34 Produc pramoxine Allergy Unknown Verified 10/08/23 15:34 [From Calamine Plus (pramox-calamin)] Review of Systems Review of Systems: All systems reviewed & are unremarkable except as noted in HPI and below PMFSH Surgical History Surgical History H/O hernia repair Social History Social History Smoking status: Current every day smoker Substance use type: does not use Living arrangements: with family Exam Narrative: GENERAL: Well-appearing, well-nourished, and in no acute distress. HEAD: Normocephalic, atraumatic. EYES: PERRLA and EOMI. ENT: Nares clear. Mucous membranes moist. NECK: Supple. CHEST: Clear to auscultation. No respiratory distress. HEART: Regular rate and rhythm. Normal peripheral pulses. ABDOMEN: Soft, nontender, nondistended. EXTREMITIES: Normal range of motion. No edema. SKIN: Warm, dry, no rash. NEURO: No focal deficits. Alert and oriented x3. PSYCH: Normal mood and affect. Course Course Emergency Course: Chart review performed. Patient here with chest pain. Last ED visit was in June of 2023, they noted that he has a a history of hypertension, asthma family history of cardiac disease. During that ED visit he had a prolonged run of V-tach proceeded by frequent PVCs which self resolved. Potassium and magnesium were repleted. He was transferred to [facility] to see allied health professional. Patient seen evaluated, nontoxic appearing. He is here with chest pain which is only present for a few seconds and improves at rest. Will do cardiac workup, screening D-dimer. Extensive discussion with patient regarding his cardiac risk factors, his heart score of 3-4. I did offer him transfer to where his allied health professional is [facility], he would prefer to be discharged home with outpatient follow-up. Repeat troponin is negative. The results of pertinent diagnostic studies and exam findings were discussed. The patient?s provisional diagnosis and plan of care were discussed with the patient and present family. The patient and/or present family expressed understanding of the diagnosis and plan. The nurse was instructed to provide written instructions and appropriate follow-up information. The patient understands their need and responsibility to obtain additional follow-up as instructed. The risks of medications administered and prescribe
[2023-10-08 16:14] LABS: D Dimer 0.19 mg/L (0.19-0.50)
[2023-10-08 16:22] LABS: Alanine Aminotransferase 60 U/L (16-63); Albumin Level 3.8 g/dL (3.4-5.0); Alkaline Phosphatase 74 U/L (46-116); Anion Gap 12 mmol/L (8-16); Aspartate Amino Transferase 28 U/L (15-37); Bilirubin,Total 0.7 mg/dL (0.00-1.00); Blood Urea Nitrogen 8 mg/dL (7-18); Calcium 8.8 mg/dL (8.5-10.1); Carbon Dioxide 25 mmol/L (21-32); Chloride 102 mmol/L (98-108); Estimated CRCL calculation 91 ml/min; Estimated Glomerular Filt Rate > 60; Glucose 125 mg/dL (70-99); Lipase 34 U/L (16-77); NT Pro B Type Natriuretic Pept 207 pg/mL (0-125); Osmolality Calculated 287 mOsm/kg (285-295); Potassium 3.1 mmol/L (3.5-5.1); Sodium 139 mmol/L (136-145); Total Protein 7.1 g/dL (6.4-8.2)
[2023-10-08 18:46] LABS: Troponin I 10.4 ng/L (0.00-60.4)
== END 2023-10-08 19:14 | disposition home or self-care (01) ==
PROVIDERS: Emergency Provider Student in an Organized Health Care Education/Training Program; PCP Physician Assistant Medical
DX: R07.9 Chest pain, unspecified (principal); I10 Essential (primary) hypertension; F17.200 Nicotine dependence, unspecified, uncomplicated; Z79.82 Long term (current) use of aspirin; Z79.899 Other long term (current) drug therapy
CPT/HCPCS: 36415; 71046; 80053; 83690; 83880; 84484; 85025; 85380; 85610; 85730; 93005; 99284

== ENCOUNTER 2023-10-21 20:11 | Emergency (ER) | payer OTHER, SELFPAY ==
--- NOTE | ~2023-10-21 | CT_ITS ---
EXAMINATION: CT abdomen pelvis wo con DATE: 10/21/2023 21:18 INDICATION: abdominal pain, h/o pancreatitis, contrast allergy TECHNIQUE: Computed tomography (CT) of the abdomen and pelvis was performed without intravenous contr ast. Automated exposure control and iterative reconstruction technique were employed. The dose-length product was 447.49 mGy-cm. COMPARISON: None. FINDINGS: Lower thorax: Unremarkable Liver: Enlarged. Biliary/Gallbladder: Gallbladder is normal. No bile duct dilation. Pancreas: No mass or duct dilation. Spleen: Normal. Adrenals:No mass. Kidneys: No suspicious mass, obstructing stone, or hydronephrosis. GI tract: No small or large bowel dilation. Normal appendix. Mesentery/Peritoneum: No ascites, mass, or free air. Retroperitoneum: No mass. Atherosclerotic abdominal aortic and/or arterial calcifications. Pelvis: Pelvic organs are within normal limits. Soft Tissues: Soft tissues and body wall unremarkable. Bones: No acute osseous finding. IMPRESSION: No acute abdominopelvic process detected. Reviewed, dictated and finalized at location K. NSIVE CARE SPECIALIST
[2023-10-21 20:11] VITALS: BP 125/76; PULSE 78; RESP 20; TEMP 36.5; O2SAT 98
--- NOTE | 2023-10-21 20:11 | ECG_ITS ---
Measurements Intervals [place] Rate: 55 P: 58 WI: 170 QRS: 1 QRSD: 113 T: 31 QT: 452 QTc: 434 Interpretive Statements SINUS BRADYCARDIA INTRAVENTRICULAR CONDUCTION DELAY BASELINE ARTIFACT- I, II, III BORDERLINE ECG COMPARED TO ECG 10/08/2023 15:26:10 NO SIGNIFICANT CHANGES Electronically Signed On 10-21-2023 21:22:55 FRONT DESK MANAGER by Jun Cartagena D.O.
--- NOTE | 2023-10-21 20:13 | ED.GENADULT ---
HPI - General Adult General Chief complaint: Abdominal Pain Stated complaint: abd pain Time Seen by Provider: 10/21/23 20:11 History of Present Illness HPI narrative: Fco is a 53M with a PMH of recurrent acute pancreatitis, HTN, v.tach, s/p ablation, tobacco abuse that presented to the ED with epigastric pain and nausea after a day of drinking. It feels like previous episodes of pancreatitis. No chest pain, dyspnea, fevers, chills, diarrhea, back pain or dysuria. Related Data Home Medications Medication Instructions Recorded Confirmed albuterol sulfate 90 mcg/actuation 2 puff inhalation PRN PRN 05/28/20 10/21/23 aerosol inhaler Shortness Of Breath amlodipine 5 mg tablet 10 mg PO DAILY 06/04/23 10/21/23 aspirin 81 mg tablet 81 mg PO DAILY 10/08/23 10/21/23 atorvastatin 40 mg tablet 40 mg PO DAILY 10/08/23 10/21/23 metoprolol succinate 50 mg 50 mg PO BID 10/21/23 10/21/23 tablet,extended release 24 hr Allergies Allergy/AdvReac Type Severity Reaction Status Date / Time calamine Allergy Unknown Verified 10/08/23 15:34 [From Calamine Plus (pramox-calamin)] Iodine and Iodide Containing Allergy Unknown Verified 10/08/23 15:34 Produc pramoxine Allergy Unknown Verified 10/08/23 15:34 [From Calamine Plus (pramox-calamin)] Review of Systems Review of Systems: All systems reviewed & are unremarkable except as noted in HPI and below [facility] Surgical History Surgical History H/O hernia repair Social History Social History Smoking status: Current every day smoker Substance use type: does not use Living arrangements: with family Exam Const: General: cooperative, healthy appearing, comfortable, no acute distress, well developed, alert, awake and Physically active Orientation/consciousness: oriented to person, oriented to place and oriented to time HENMT: Head: normal to inspection, normocephalic and atraumatic Ears: hearing grossly normal bilaterally and external ears normal Face/Nose/Sinus: Normal external nose present Eyes: General: appearance normal, both eyes and all related structures Periorbital: periorbital findings normal Sclera: sclerae normal Pupils: Equal, round and reactive pupils present Neck: Neck: normal visual inspection Chest: Chest palpation & inspection: normal inspection of the chest Resp: Effort & Inspection: normal respiratory effort, able to speak in complete sentences and no respiratory distress Auscultation: clear to auscultation bilaterally Cardio: Jugular venous distension: no JVD Rate: regular rate Rhythm: regular rhythm GI: Inspection: normal to inspection Auscultation: normal bowel sounds Other: TTP in the epigastric region and LUQ with guarding but no rebound tenderness : Other: No CVA tenderness Skin: General skin exam: normal color and no rashes or lesions noted Neuro: General: oriented to person, oriented to place and oriented to time Cranial nerves: Yes Equal, round and reactive pupils present Extrem: General: normal to inspection Psych: Mental Status: mental status grossly normal Course Course Emergency Course: Ordered EKG, labs, fluids, zofran and morphine EKG showed NSR with a rate of 55, normal axis, no ST elevation/depression or ectopy Labs were largely unremarkable with the exception of an ethanol level of 187 EXAMINATION: CT abdomen pelvis wo con DATE: 10/21/2023 21:18 INDICATION: abdominal pain, h/o pancreatitis, contrast allergy TECHNIQUE: Computed tomography (CT) of the abdomen and pelvis was performed without intravenous contrast. Automated exposure control and iterative reconstruction technique were employed. The dose-length product was 447.49 mGy-cm. COMPARISON: None. FINDINGS: Lower thorax: Unremarkable Liver: Enlarged.? Biliary/Gallbladder: Gallbladder is normal. No bile duct dilatio
[2023-10-21 20:34] LABS: Basophils Absolute Auto 0.06 K/mm3 (0.00-0.10); Basophils Percent Auto 0.6 % (0.0-1.0); Eosinophils Absolute Auto 0.56 K/mm3 (0.02-0.50); Eosinophils Percent Auto 5.4 % (1.0-6.0); Hematocrit 43.3 % (40.0-54.0); Hemoglobin 15.1 g/dL (14.0-18.0); Immature Granulocyte Absolute 0.02 K/mm3 (0.00-0.00); Immature Granulocyte Percent A 0.2 % (0.0-0.0); Lymphocytes Absolute Auto 4.44 K/mm3 (1.10-4.50); Lymphocytes Percent Auto 43.1 % (18.0-42.0); Mean Corpuscular HGB Conc 34.9 g/dL (32.0-36.0); Mean Corpuscular Hemoglobin 31.9 pg (27.0-31.0); Mean Corpuscular Volume 91.5 fL (78.0-102.0); Mean Platelet Volume 10.2 fl (8.7-11.0); Monocytes Absolute Auto 0.58 K/mm3 (0.10-0.90); Monocytes Percent Auto 5.6 % (2.0-11.0); Neutrophils Absolute Auto 4.6 K/mm3 (1.7-7.2); Neutrophils Percent Auto 45.1 % (50.0-70.0); Platelet Count Result 264 K/mm3 (150-420); Red Blood Count 4.73 M/mm3 (4.70-6.10); Red Cell Distribution Width 13.2 % (11.6-14.4); White Blood Count 10.3 K/mm3 (4.8-10.8)
[2023-10-21] MEDS: LACTATED RINGERS 1,000 ML 999 ML IV CONT (20:47)
[2023-10-21] MEDS: MORPHINE SULFATE (*CRX) 4 MG/ML INJ IV PUSH (20:49)
[2023-10-21] MEDS: ONDANSETRON INJ 4 MG/2 ML VIAL IV PUSH (20:49)
[2023-10-21 20:53] LABS: Alanine Aminotransferase 56 U/L (16-63); Albumin Level 3.6 g/dL (3.4-5.0); Alkaline Phosphatase 77 U/L (46-116); Anion Gap 12 mmol/L (8-16); Aspartate Amino Transferase 34 U/L (15-37); Bilirubin,Total 0.6 mg/dL (0.00-1.00); Blood Urea Nitrogen 14 mg/dL (7-18); Calcium 8.2 mg/dL (8.5-10.1); Carbon Dioxide 27 mmol/L (21-32); Chloride 97 mmol/L (98-108); Estimated CRCL calculation 60 ml/min; Estimated Glomerular Filt Rate 56; Ethanol 187 mg/dL (0-6); Glucose 102 mg/dL (70-99); Lipase 100 U/L (16-77); Osmolality Calculated 282 mOsm/kg (285-295); Potassium 3.5 mmol/L (3.5-5.1); Sodium 136 mmol/L (136-145); Total Protein 7.1 g/dL (6.4-8.2); Troponin I 10.5 ng/L (0.00-60.4)
[2023-10-21 20:54] LABS: CRP < 0.5 mg/dL (0.0-0.9)
[2023-10-21] MEDS: MAG HYDROX/ALUMINUM HYD/SIMETH 30 ML, PHENobarb/HYOSCY/ATROPINE/SCOP 32.4 MG, LIDOCAINE... PO (21:53)
[2023-10-21] MEDS: METOCLOPRAMIDE HCL INJ 10 MG/2 ML VIAL IV PUSH (22:20)
== END 2023-10-21 22:41 | disposition home or self-care (01) ==
PROVIDERS: Emergency Provider Family Medicine
DX: K21.9 Gastro-esophageal reflux disease without esophagitis (principal); F17.200 Nicotine dependence, unspecified, uncomplicated; Z79.82 Long term (current) use of aspirin; Z79.899 Other long term (current) drug therapy
CPT/HCPCS: 36415; 74176; 80053; 80307; 83605; 83690; 84484; 85025; 86140; 93005; 96361; 96374; 96375; 99284; A9270; J2270; J2405; J2765; J7120

== ENCOUNTER 2024-01-20 23:22 | Emergency (ER) | payer OTHER, SELFPAY ==
[2024-01-20 23:25] VITALS: PULSE 76
--- NOTE | 2024-01-20 23:27 | ECG_ITS ---
SEE SCANNED COPY FOR CONFIRMED REPORT MTDD
[2024-01-20 23:29] VITALS: BP 127/80; PULSE 76; RESP 20; TEMP 36.7; O2SAT 100
--- NOTE | 2024-01-20 23:32 | ED.GENADULT ---
HPI - General Adult General Chief complaint: Arrhythmia/Palpitations Stated complaint: irregular heart beat Time Seen by Provider: 01/20/24 23:27 History of Present Illness HPI narrative: The patient is a 53-year-old male with history of palpitations on Lopressor 50 mg p.o. b.i.d. also with hypertension hyperlipidemia GERD, on aspirin 81 mg daily. Tonight, he woke up from sleep, with stronger palpitations unusual. No chest pain discomfort tightness or pressure. No radiation of any chest pain elsewhere such as in the neck jaw arms shoulders or back. No other associated symptoms such as nausea vomiting diaphoresis. No abdominal pain. No other complaints. Denies drug use. He admits to alcohol use but not daily. He has a history of ventricular tachycardia, s/p ablation ( burnt 9 spots in my heart ). Related Data Home Medications Medication Instructions Recorded Confirmed albuterol sulfate 90 mcg/actuation 2 puff inhalation PRN PRN 05/28/20 01/20/24 aerosol inhaler Shortness Of Breath amlodipine 5 mg tablet 10 mg PO DAILY 06/04/23 01/20/24 aspirin 81 mg tablet 81 mg PO DAILY 10/08/23 01/20/24 atorvastatin 40 mg tablet 40 mg PO DAILY 10/08/23 01/20/24 metoprolol succinate 50 mg 50 mg PO BID 10/21/23 01/20/24 tablet,extended release 24 hr lisinopril 40 mg tablet 40 mg PO DAILY 01/20/24 01/20/24 [id number]-[id number]-[id number] tablet 1 tablet PO DAILY 01/20/24 01/20/24 trazodone 50 mg tablet 50 mg PO HS 01/20/24 01/20/24 Allergies Allergy/AdvReac Type Severity Reaction Status Date / Time calamine Allergy Unknown Verified 10/08/23 15:34 [From Calamine Plus (pramox-calamin)] Iodine and Iodide Containing Allergy Unknown Verified 10/08/23 15:34 Produc pramoxine Allergy Unknown Verified 10/08/23 15:34 [From Calamine Plus (pramox-calamin)] Review of Systems Review of Systems: All systems reviewed & are unremarkable except as noted in HPI and below Constitutional: Constitutional: Denies chills, Denies excessive sweating, Denies fatigue, Denies fever(s), Denies headache(s) and Denies weakness Eyes: Eyes: Denies change in vision and Denies photophobia ENT: Denies dysphagia, Denies dizziness, Denies headache(s), Denies lip swelling, Denies nasal congestion, Denies sore throat and Denies tongue swelling Cardiovascular: Cardiovascular: Denies chest pain, Denies syncope, Denies rapid heart rate and Denies dyspnea Respiratory: Respiratory: Denies cough, Denies dyspnea and Denies wheezing Gastrointestinal: Gastrointestinal: Denies abdominal pain, Denies constipation, Denies dysphagia, Denies diarrhea, Denies nausea and Denies vomiting Genitourinary: Genitourinary: Denies hematuria, Denies dysuria, Denies urinary frequency and Denies urinary urgency Musculoskeletal: Musculoskeletal: Denies back pain, Denies myalgias, Denies arthralgias, Denies joint swelling and Denies numbness Integumentary/Breasts: Skin/Breast: Denies pruritus, Denies erythema and Denies rash Neurologic: Denies confusion, Denies dizziness, Denies syncope, Denies headache(s), Denies focal weakness, Denies numbness and Denies weakness Psychiatric: Psychiatric: Denies anxiety and Denies confusion Endocrine: Endocrine: Denies excessive sweating and Denies fatigue Hematologic/Lymphatic: Hematologic/Lymphatic: Denies easy bleeding and Denies easy bruising Allergic/Immunologic: Allergic/Immunologic: Denies lip swelling, Denies tongue swelling and Denies wheezing PMFSH Surgical History Surgical History H/O hernia repair Social History Social History Smoking status: Current every day smoker Substance use type: does not use Living arrangements: with family Exam Const: General: healthy appearing, no acute distress, alert and well nourished Nutritional Appearance: well nourished Orientation/consciousness: patient oriente
[2024-01-20 23:58] LABS: Basophils Absolute Auto 0.04 K/mm3 (0.00-0.10); Basophils Percent Auto 0.4 % (0.0-1.0); Eosinophils Absolute Auto 0.67 K/mm3 (0.02-0.50); Eosinophils Percent Auto 6.1 % (1.0-6.0); Hematocrit 41.3 % (40.0-54.0); Hemoglobin 13.9 g/dL (14.0-18.0); Immature Granulocyte Absolute 0.03 K/mm3 (0.00-0.00); Immature Granulocyte Percent A 0.3 % (0.0-0.0); Lymphocytes Absolute Auto 4.06 K/mm3 (1.10-4.50); Lymphocytes Percent Auto 37.1 % (18.0-42.0); Mean Corpuscular HGB Conc 33.7 g/dL (32-36); Mean Corpuscular Hemoglobin 31.6 pg (27.0-31.0); Mean Corpuscular Volume 93.9 fL (78.0-102.0); Mean Platelet Volume 9.8 fl (8.7-11.0); Monocytes Percent Auto 5.5 % (2.0-11.0); Neutrophils Absolute Auto 5.54 K/mm3 (1.70-7.20); Neutrophils Percent Auto 50.6 % (50.0-70.0); Platelet Count Result 238 K/mm3 (150-420); Red Cell Distribution Width 12.9 % (11.6-14.4); White Blood Count 10.9 K/mm3 (4.8-10.8)
[2024-01-21 00:24] LABS: Alanine Aminotransferase 32 U/L (16-63); Albumin Level 3.5 g/dL (3.4-5.0); Alkaline Phosphatase 79 U/L (46-116); Anion Gap 15 mmol/L (4-12); Aspartate Amino Transferase 20 U/L (15-37); Bilirubin,Total 0.5 mg/dL (0.00-1.00); Blood Urea Nitrogen 26 mg/dL (7-18); Calcium 8.3 mg/dL (8.5-10.1); Carbon Dioxide 25 mmol/L (21-32); Chloride 102 mmol/L (98-108); Estimated CRCL calculation 46 ml/min; Estimated Glomerular Filt Rate 43; Glucose 94 mg/dL (70-99); Magnesium 1.8 mg/dL (1.8-2.4); NT Pro B Type Natriuretic Pept 95 pg/mL (0-125); Osmolality Calculated 298 mOsm/kg (285-295); Potassium 3.3 mmol/L (3.5-5.1); Sodium 142 mmol/L (136-145); Troponin I 7.6 ng/L (0.00-60.4)
[2024-01-21 00:33] LABS: Thyroid Stimulating Hormone Reflex 1.41 u/IU/mL (0.36-3.74)
[2024-01-21 01:00] VITALS: BP 120/74; PULSE 75; RESP 18; O2SAT 100
[2024-01-21] MEDS: POTASSIUM CHLORIDE 20 MEQ ER TABLET 40 MEQ PO (01:19)
[2024-01-21] MEDS: SODIUM CHLORIDE 0.9% IV 1,000 ML 999 ML IV CONT ×2 (01:20→02:00)
[2024-01-21] MEDS: MAGNESIUM SULF 2 GM/WATER 50ML 2 GM/50 ML BAG IVPB (01:23)
[2024-01-21 02:47] VITALS: BP 113/60; PULSE 65; RESP 18; TEMP 36.6; O2SAT 100
== END 2024-01-21 02:47 | disposition home or self-care (01) ==
PROVIDERS: Emergency Provider Emergency Medicine
DX: N17.9 Acute kidney failure, unspecified (principal); R00.2 Palpitations; E87.6 Hypokalemia; Z79.51 Long term (current) use of inhaled steroids; Z79.82 Long term (current) use of aspirin; F17.200 Nicotine dependence, unspecified, uncomplicated
CPT/HCPCS: 36415; 80053; 83735; 83880; 84443; 84484; 85025; 93005; 96361; 96365; 99284; A9270; J3475; J7030

== ENCOUNTER 2024-03-25 09:29 | Outpatient (CLI) | payer OTHER, SELFPAY ==
--- NOTE | 2024-03-25 12:56 | P.PCNPFT_ITS ---
PFT Procedure Performed PFT Procedure Performed Spirometry with Pre/Post Bronchodilator Plethysmography (Lung Vol) Diffusing Cap (DLCO) Flow Vol Loop PFT Interpretation DOS: 03/25/2024 REQUESTING: Roger Santacruz MD REASON FOR TESTING: Dyspnea PULMONARY FUNCTION TESTS Results are reliable and reproducible. The document management technician noted that the patient had a difficult time exhaling completely. Spirometry: The pre-bronchodilator FEV1 is 3.19 L, 91%, normal. The pre- bronchodilator FVC is 3.93 L, 89%, normal. The FEV1/FVC ratio is 81%. After bronchodilator, the FEV1 is 3.22 L, 92%, +1%. The FVC is 4.25 L, 96%, +8%. The FEV1/FVC ratio is 81%. Lung volumes: The total lung capacity is 5.96 L, 91%, normal. The residual volume is 2.03 L, 94%, normal. The RV/TLC is 34%. The FRC is 3.17 L, 89%, normal. Airway resistance is normal. Diffusion: DLCO is 22.3, 89%, normal. The DLCO/VA is 4.88, 122%, normal. Flow volume loop: The flow volume loop shows a knee in the expiratory limb. This is a variant of normal. The inspiratory limb is truncated. There were 3 attempts, none were normal. IMPRESSION: This study shows normal spirometry without significant response to bronchodilator, normal lung volumes, and normal diffusion. There are no prior studies for comparison. Lack of response to bronchodilator should not preclude use if clinically indicated. The inspiratory limb of the flow volume loop may be artifact. Clinical correlation is recommended. Dot Randolph MD
== END 2024-03-25 09:30 | disposition home or self-care (01) ==
LOC: CHSCARD 09:31
PROVIDERS: PCP Physician Assistant Medical; Visit Provider Physician Assistant Medical
DX: R06.09 Other forms of dyspnea (principal)
CPT/HCPCS: 94060; 94726; 94729

== ENCOUNTER 2024-04-28 16:37 | Emergency (ER) | payer OTHER, SELFPAY ==
[2024-04-28] VITALS (8 sets, daily range): BP systolic 128–182; BP diastolic 77–104; PULSE 47–68; RESP 13–26; TEMP 36.3; O2SAT 97–100
--- NOTE | ~2024-04-28 | XR_ITS ---
EXAMINATION: XR chest 1V portable DATE: 04/28/2024 17:47 INDICATION: Shortness of breath TECHNIQUE: frontal view of the chest was obtained. COMPARISON: Chest radiograph dated 10/08/2023 FINDINGS: The lungs are clear with no focal airspace opacities, pulmonary edema, pleural effusion or pneumothor ax. The cardiomediastinal silhouette is normal. Visualized bones and soft tissues are unremarkable. IMPRESSION: 1. No acute cardiopulmonary disease Reviewed, dictated and finalized at location A.
--- NOTE | 2024-04-28 16:41 | ECG_ITS ---
Test Date: 2024-04-28 16:56:18 Measurements Intervals [place] Rate: 47 P: 61 AR: 165 QRS: 24 QRSD: 117 T: 52 QT: 435 QTc: 387 Interpretive Statements SINUS BRADYCARDIA JUNCTIONAL ESCAPE COMPLEX INTRAVENTRICULAR CONDUCTION DELAY ABNORMAL ECG No previous ECG available for comparison Electronically Signed On 04-28-2024 19:40:13 CDT by Jun Cartagena D.O.
[2024-04-28 16:55] LABS: Basophils Absolute Auto 0.05 K/mm3 (0.00-0.10); Basophils Percent Auto 0.5 % (0.0-1.0); Eosinophils Absolute Auto 0.77 K/mm3 (0.02-0.50); Eosinophils Percent Auto 7.6 % (1.0-6.0); Hematocrit 43.6 % (40.0-54.0); Hemoglobin 15.4 g/dL (14.0-18.0); Immature Granulocyte Absolute 0.03 K/mm3 (0.00-0.00); Immature Granulocyte Percent A 0.3 % (0.0-0.0); Lymphocytes Absolute Auto 3.42 K/mm3 (1.10-4.50); Lymphocytes Percent Auto 33.9 % (18.0-42.0); Mean Corpuscular HGB Conc 35.3 g/dL (32-36); Mean Corpuscular Hemoglobin 33.3 pg (27.0-31.0); Mean Corpuscular Volume 94.4 fL (78.0-102.0); Mean Platelet Volume 9.5 fl (8.7-11.0); Monocytes Absolute Auto 0.96 K/mm3 (0.10-0.90); Monocytes Percent Auto 9.5 % (2.0-11.0); Neutrophils Absolute Auto 4.87 K/mm3 (1.70-7.20); Neutrophils Percent Auto 48.2 % (50.0-70.0); Platelet Count Result 269 K/mm3 (150-420); Red Blood Count 4.62 M/mm3 (4.70-6.10); Red Cell Distribution Width 12.5 % (11.6-14.4); White Blood Count 10.1 K/mm3 (4.8-10.8)
[2024-04-28] MEDS: IPRATROPIUM 0.5 MG/ALBUTEROL SULFATE 2.5 MG AMPUL.NEB 3 ML INHALATION ×3 (16:57)
[2024-04-28 17:08] LABS: INR 0.9; Partial Thromboplastin Time 29.5 Sec (23.9-30.70); Prothrombin Time 10.3 Seconds (9.50-12.1)
[2024-04-28 17:15] LABS: Alanine Aminotransferase 27 U/L (16-63); Albumin Level 3.6 g/dL (3.4-5.0); Alkaline Phosphatase 77 U/L (46-116); Anion Gap 9 mmol/L (4-12); Aspartate Amino Transferase 20 U/L (15-37); Bilirubin,Total 0.8 mg/dL (0.00-1.00); Blood Urea Nitrogen 14 mg/dL (7-18); Calcium 8.3 mg/dL (8.5-10.1); Carbon Dioxide 26 mmol/L (21-32); Chloride 103 mmol/L (98-108); Estimated CRCL calculation 69 ml/min; Estimated Glomerular Filt Rate > 60; Glucose 113 mg/dL (70-99); NT Pro B Type Natriuretic Pept 122 pg/mL (0-125); Osmolality Calculated 287 mOsm/kg (285-295); Potassium 3.7 mmol/L (3.5-5.1); Sodium 138 mmol/L (136-145); Total Protein 7.1 g/dL (6.4-8.2); Troponin I 5.7 ng/L (0.00-60.4)
--- NOTE | 2024-04-28 17:20 | PC.NURSE ---
Pt is resting comfortably in his stretcher. Registration is in the room. Call light w/in reach.
--- NOTE | 2024-04-28 17:43 | PC.NURSE ---
Pt resting comfortably in his stretcher. Xray in room. Waiting on test result.
--- NOTE | 2024-04-28 17:49 | ED.SOB ---
HPI - SOB/Dyspnea General Chief Complaint: Shortness of Breath/Dyspnea Stated Complaint: hard to breathe Time Seen by Provider: 04/28/24 16:41 History of Present Illness HPI Narrative: Pt presents with SOB and tingling across chest for two days. Pt denies fever. Pt has non productive cough. Pt denies long trips or recent surgeries and has no history of blood clots or a FH. Pt denies leg pain or fever, SOB is not exertional. Pt says he had childhood asthma which was triggered by hot temps (we are under excessive heat warning now). Pt has used his inhaler with minimal relief. Related Data Home Medications Medication Instructions Recorded Confirmed albuterol sulfate 90 mcg/actuation 2 puff inhalation PRN PRN 05/28/20 04/28/24 aerosol inhaler Shortness Of Breath amlodipine 5 mg tablet 10 mg PO DAILY 06/04/23 04/28/24 aspirin 81 mg tablet 81 mg PO DAILY 10/08/23 04/28/24 atorvastatin 40 mg tablet 40 mg PO DAILY 10/08/23 04/28/24 metoprolol succinate 50 mg 50 mg PO BID 10/21/23 04/28/24 tablet,extended release 24 hr lisinopril 40 mg tablet 40 mg PO DAILY 01/20/24 04/28/24 [id number]-gnnyjcgr-isahnx tablet 1 tablet PO DAILY 01/20/24 04/28/24 trazodone 50 mg tablet 50 mg PO HS 01/20/24 04/28/24 Allergies Allergy/AdvReac Type Severity Reaction Status Date / Time calamine Allergy Rash Verified 04/28/24 16:45 [From Calamine Plus (pramox-calamin)] Iodine and Iodide Containing Allergy Hives Verified 04/28/24 16:45 Produc pramoxine Allergy Rash Verified 04/28/24 16:45 [From Calamine Plus (pramox-calamin)] Review of Systems Review of Systems: All systems reviewed & are unremarkable except as noted in HPI and below PMFSH Surgical History Surgical History H/O hernia repair Social History Social History Smoking status: Current every day smoker Substance use type: does not use Living arrangements: with family Course Vital Signs Vital signs: Vital Signs Temperature 97.4 F L 04/28/24 16:40 Pulse Rate 68 04/28/24 16:40 Respiratory Rate 18 04/28/24 16:40 Blood Pressure 182/104 H 04/28/24 16:40 Pulse Oximetry 100 04/28/24 16:40 Oxygen Delivery Room Air 04/28/24 16:40 Temperature 97.4 F L 04/28/24 16:40 Pulse Rate 62 04/28/24 18:01 Respiratory Rate 26 H 04/28/24 18:01 Blood Pressure 128/89 04/28/24 18:01 Pulse Oximetry 99 04/28/24 18:01 Oxygen Delivery Room Air 04/28/24 16:49 MDM - SOB/Dyspnea MDM Narrative Medical decision making narrative: Pt presents with SOB and chest tingling for two days. satting 100% on RA clear lungs on exam. will check ekg, cxr, labs and give neb. EKG and labs and cxr unremarkable. will send home on prednisone and z pack Differential Diagnosis Differential diagnosis: Likely acute exacerbation of chronic obstructive airways disease, congestive heart failure, community acquired pneumonia, asthma with exacerbation and pulmonary embolism (no likely PE) Lab Data 04/28/24 16:50 04/28/24 16:50 Labs: Lab Results 04/28/24 Range/Units 16:50 WBC 10.1 (4.8-10.8) K/mm3 RBC 4.62 L (4.70-6.10) M/mm3 Hgb 15.4 (14.0-18.0) g/dL Hct 43.6 (40.0-54.0) % MCV 94.4 (78.0-102.0) fL MCH 33.3 H (27.0-31.0) pg MCHC 35.3 (32-36) g/dL RDW 12.5 (11.6-14.4) % Plt Count 269 (150-420) K/mm3 MPV 9.5 (8.7-11.0) fl Immature Gran % (Auto) 0.3 H (0.0-0.0) % Neut % (Auto) 48.2 L (50.0-70.0) % Lymph % (Auto) 33.9 (18.0-42.0) % [place] % (Auto) 9.5 (2.0-11.0) % Eos % (Auto) 7.6 H (1.0-6.0) % Baso % (Auto) 0.5 (0.0-1.0) % Lymph # (Auto) 3.42 (1.10-4.50) K/mm3 [place] # (Auto) 0.96 H (0.10-0.90) K/mm3 Eos # (Auto) 0.77 H (0.02-0.50) K/mm3 Baso # (Auto) 0.05 (0.00-0.10) K/mm3 Abs Immat Gran (auto) 0.03 H (0.00-0.00) K/mm3 Absolute Neuts (auto) 4.87
== END 2024-04-28 18:08 | disposition home or self-care (01) ==
PROVIDERS: Emergency Provider Emergency Medicine; PCP Physician Assistant Medical
DX: J20.9 Acute bronchitis, unspecified (principal); F17.200 Nicotine dependence, unspecified, uncomplicated
CPT/HCPCS: 36415; 71045; 80053; 83735; 83880; 84484; 85025; 85610; 85730; 93005; 94640; 99284